=== PATIENT | male | born 1940 | race Caucasian/White ===

== ENCOUNTER 2022-05-21 10:43 | Outpatient (CLI) | payer OTHER, SELFPAY | END 2022-05-21 10:44 | disposition home or self-care (01) | LOC: INJ CL 10:51 | PROVIDERS: PCP Family Medicine; Visit Provider Family Medicine | DX: M54.16 Radiculopathy, lumbar region (principal); M51.36 Other intervertebral disc degeneration, lumbar region | CPT/HCPCS: 62323; J0702; Q9966 ==

== ENCOUNTER 2022-11-19 09:52 | Outpatient (CLI) | payer OTHER, SELFPAY | END 2022-11-19 09:53 | disposition home or self-care (01) | PROVIDERS: PCP Family Medicine; Visit Provider Family Medicine | DX: M51.36 Other intervertebral disc degeneration, lumbar region (principal); M54.16 Radiculopathy, lumbar region | CPT/HCPCS: 62323; J0702; Q9966 ==

== ENCOUNTER 2023-12-28 20:38 | Outpatient (CLI) | payer OTHER, SELFPAY | END 2023-12-28 20:39 | disposition home or self-care (01) | LOC: AMB 12-30 03:26 | PROVIDERS: PCP Family Medicine; Visit Provider Emergency Medicine | DX: S29.9XXA Unspecified injury of thorax, initial encounter (principal); V86.11XA Passenger of ambulance or fire engine injured in traffic accident, initial encounter; Y92.411 Interstate highway as the place of occurrence of the external cause | CPT/HCPCS: A0425; A0429 ==